=== PATIENT | female | born 1930 | race Caucasian/White ===

== ENCOUNTER 2016-08-15 16:01 | Inpatient (IN) | payer OTHER ==
[~2016-08-15] VITALS: Ht 152.4 cm; Wt 53.0 kg
[2016-08-15 16:21] LABS: BASOPHIL COUNT 0.1 K/uL (0-0.1); EOSINOPHIL (%) 2.1 % (0-5); EOSINOPHIL COUNT 0.3 K/uL (0-0.3); IMMATURE GRANULOCYTE (%) 0.6 % (0.0-0.7); IMMATURE GRANULOCYTE COUNT 0.1 K/uL; INSTRUMENT ABS NEUTROPHIL CT 7.6 K/uL; LYMPHOCYTE COUNT 3.6 K/uL (1.0-2.8); MCH 30.7 PG (29.0-34.0); MCHC 31.8 G/DL (30.0-36.0); MCV 96.5 FL (83-99); MEAN PLAT.VOLUME 10.4 uM^3 (9.5-12.4); MONOCYTE (%) 7.7 % (3-12); NEUTROPHIL (%) 60.3 % (45-76); NEUTROPHIL COUNT 7.6 K/uL (1.8-6.4); PLATELET COUNT 205 K/uL (156-360); RBC DIS.WIDTH-CV 12.5 % (11.8-14.6); RBC DIS.WIDTH-SD 44.7 % (39-53); RED BLOOD COUNT 4.56 M/uL (3.80-5.20); WHITE BLOOD COUNT 12.5 K/uL (4.1-10.2)
[2016-08-15 16:29] LABS: AMYLASE 77 IU/L (1-118); CHLORIDE 103 mEq/L (99-109)
[2016-08-15 16:30] LABS: SODIUM 143 mEq/L (136-147)
[2016-08-15 16:31] LABS: GLUCOSE 118 mg/dL (70-99)
[2016-08-15 16:33] LABS: ANION GAP 12 MEQ/L (2-14)
[2016-08-15 16:34] LABS: SERUM ETHYL ALCOHOL < 10 mg/dL
[2016-08-15 16:36] LABS: GFR ESTIMATE (CALCULATED) > 59 mL/min/; UREA NITROGEN (BUN) 14 mg/dL (9-23)
[2016-08-15 16:38] LABS: LIPASE 19 U/L (1.0-51.0)
[2016-08-15 18:22] LABS: ADD MIUA? YES; BILIRUBIN NEGATIVE; BLOOD NEGATIVE; COLOR STRAW ((YELLOW)); GLUCOSE (STRIP) NEGATIVE; KETONES NEGATIVE; LEUKOCYTES LARGE; NITRITE NEGATIVE; PROTEIN (STRIP) NEGATIVE; SPECIFIC GRAVITY 1.024 (1.000-1.030); UROBILINOGEN 0.2 MG/DL (0.2-1.0)
[2016-08-15 18:25] LABS: BACTERIA RARE /HPF; EPITHELIAL CELLS RARE /HPF; MUCUS TRACE /LPF; RED BLOOD CELLS 0-5 /HPF (0-5); UCUL ADDED? NO; WHITE BLOOD CELLS 40-50 /HPF (0-5)
[2016-08-15 18:33] LABS: AMPHETAMINE NEGATIVE (500 ng/mL); BARBITURATES NEGATIVE (200 ng/mL); BENZODIAZEPINES NEGATIVE (150 ng/mL); COCAINE NEGATIVE (150 ng/mL); INTERNAL CONTROLS VALID? YES; METHADONE NEGATIVE (200 ng/mL); METHAMPHETAMINE NEGATIVE (500 ng/mL); OPIATES (MORPHINE) PRESUMPTIVE POSITIVE (100 ng/mL); OXYCODONE NEGATIVE (100 ng/mL); PHENCYCLIDINE NEGATIVE (25 ng/mL); PROPOXYPHENE NEGATIVE (300 ng/mL); THC CANNABINOIDS NEGATIVE (50 ng/mL); TRICYCLIC ANTIDEPRESSANTS NEGATIVE (300 ng/mL)
[2016-08-15 18:34] LABS: ADD MEDTOX COMMENT Y
[2016-08-15] MEDS ORDERED: REMERON30 M2 PO (19:13)
[2016-08-15] MEDS ORDERED: LEVO-T75 MCG PO (19:13)
[2016-08-15] MEDS ORDERED: ACTONEL35 MG PO (19:13)
[2016-08-15] MEDS ORDERED: ZOCOR20 MG PO (19:14)
[2016-08-15] MEDS ORDERED: MIRALAX17 GM PO (19:14)
[2016-08-15] MEDS ORDERED: MOTRIN800 MG PO (19:14)
[2016-08-15] MEDS ORDERED: CALCIUM500 M4 PO (19:15)
[2016-08-15] MEDS ORDERED: ASCORBIC ACID100 MG PO (19:15)
[2016-08-15] MEDS ORDERED: VITAMIN E1000 UNI1 PO (19:15)
[2016-08-15] MEDS ORDERED: ZANTAC150 MG PO (19:15)
[2016-08-15] MEDS ORDERED: REFRESH TEARS15 ML BOTH EYES (19:16)
[2016-08-15] MEDS ORDERED: LO-DOSE ASPIRIN81 M2 PO (19:16)
[2016-08-15] MEDS ORDERED: PRESERVISION T1 EACH PO (19:16)
[2016-08-15 21:37] VITALS: BP 137/74
[2016-08-15 23:25] VITALS: BP 115/58
[2016-08-16 04:16] VITALS: BP 131/78
[2016-08-16 05:49] LABS: HEMATOCRIT 38.9 % (36.0-46.0); MCHC 31.6 G/DL (30.0-36.0); MEAN PLAT.VOLUME 10.5 uM^3 (9.5-12.4); PLATELET COUNT 200 K/uL (156-360); RBC DIS.WIDTH-CV 12.7 % (11.8-14.6); RBC DIS.WIDTH-SD 45.4 % (39-53); RED BLOOD COUNT 3.97 M/uL (3.80-5.20); WHITE BLOOD COUNT 12.7 K/uL (4.1-10.2)
[2016-08-16 06:29] LABS: ANION GAP 9 MEQ/L (2-14); CHLORIDE 103 MEQ/L (99-109); GFR ESTIMATE (CALCULATED) > 59 mL/min/; GLUCOSE 133 mg/dL (70-99); POTASSIUM 4.8 MEQ/L (3.7-5.4); SAMPLE HEMOLYSIS CHECK 0; SAMPLE ICTERIC CHECK 0; SAMPLE LIPEMIA CHECK 0; SODIUM 141 MEQ/L (136-147); UREA NITROGEN (BUN) 14 mg/dL (9-23)
[2016-08-16 08:22] VITALS: BP 121/92
[2016-08-16 11:43] VITALS: BP 128/68
[2016-08-16 16:49] VITALS: BP 118/68
[2016-08-16 19:38] VITALS: BP 138/84
[2016-08-16 23:31] VITALS: BP 143/72
[2016-08-17 03:46] VITALS: BP 135/82
[2016-08-17 08:10] VITALS: BP 156/80
[2016-08-17 15:52] VITALS: BP 125/74
[2016-08-17 23:16] VITALS: BP 156/85
[2016-08-18 07:30] VITALS: BP 134/76
[2016-08-18] MEDS ORDERED: NORCO 5/3251 TABLET PO (11:36)
== END 2016-08-18 15:53 | DRG 184 ==
LOC: TRA 16:01 → 3EAST 19:11 → EDOF 19:11 → 3EAST 20:21
PROVIDERS: Emergency Medicine; Surgery
PROC: 0HQ0XZZ Repair Scalp Skin, External Approach (ICD-10-PCS; principal; 2016-08-15)
DX: S22.42XA Multiple fractures of ribs, left side, initial encounter for closed fracture (principal); S27.0XXA Traumatic pneumothorax, initial encounter; S27.69XA Other injury of pleura, initial encounter; M84.48XA Pathological fracture, other site, initial encounter for fracture; W10.0XXA Fall (on)(from) escalator, initial encounter; S00.03XA Contusion of scalp, initial encounter; Y93.01 Activity, walking, marching and hiking; S81.801A Unspecified open wound, right lower leg, initial encounter; R29.6 Repeated falls; Y92.513 Shop (commercial) as the place of occurrence of the external cause; S69.92XA Unspecified injury of left wrist, hand and finger(s), initial encounter; S01.01XA Laceration without foreign body of scalp, initial encounter; I71.4 Abdominal aortic aneurysm, without rupture; E78.00 Pure hypercholesterolemia, unspecified; E03.9 Hypothyroidism, unspecified; F41.9 Anxiety disorder, unspecified; K21.9 Gastro-esophageal reflux disease without esophagitis; Z91.81 History of falling
CPT/HCPCS: 70450; 71010; 71020; 71260; 72125; 72129; 72132; 74177; 80048; 81003; 82150; 83690; 84999; 85025; 85027; 86900; 86901; 94010; 94799; 99281; 99285; G0480; J2270